=== PATIENT | male | born 1985 | race Caucasian/White ===

== ENCOUNTER 2023-03-20 18:46 | Emergency (ER) | payer BC ==
[2023-03-20] MEDS ORDERED: Aspirin 81 MG Tab.Chew PO ONE (19:07)
[2023-03-20] MEDS ORDERED: Sodium Chloride 0.9% 10 ML Syringe FLUSH PRN (19:07)
[2023-03-20 19:15] LABS: BASOPHILS ABSOLUTE AUTO 0.05 K/mm3 (0.01-0.08); BASOPHILS PERCENT AUTO 0.5 % (0.1-1.2); EOSINOPHILS PERCENT AUTO 3.2 (0.8-7.0); HEMATOCRIT 47.4 % (40.1-51.0); HEMOGLOBIN 16.2 gm/dl (13.7-17.5); IMMATURE GRAN ABSOLUTE AUTO 0.05 K/mm3 (0.00-0.10); IMMATURE GRAN PERCENT AUTO 0.5 % (<=1.0); LYMPHOCYTES ABSOLUTE AUTO 3.87 K/mm3 (1.32-3.57); LYMPHOCYTES PERCENT AUTO 41.6 % (21.8-53.1); MEAN CORPUSCULAR HGB CONC 34.2 g/dl (32.2-35.5); MEAN CORPUSCULAR VOLUME 90.8 fl (79.0-92.2); MEAN PLATELET VOLUME 9.5 fl (9.4-12.3); MONOCYTES ABSOLUTE AUTO 0.93 K/mm3 (0.30-0.82); NEUTROPHILS PERCENT AUTO 44.2 % (34.0-67.9); PLATELET COUNT,PLT 256 K/mm3 (163-337); RED BLOOD CELL COUNT 5.22 M/mm3 (4.63-6.08)
[2023-03-20 19:23] LABS: INR 0.93
[2023-03-20 19:28] LABS: A/G RATIO 1.2 (1-2); ALANINE AMINOTRANSFERASE,ALT 50 U/L (16-63); ALBUMIN 4.3 g/dl (3.4-5.0); ALKALINE PHOSPHATASE 126 U/L (46-116); ANION GAP 13.1 (5-15); ASPARTATE AMNIOTRANSFERASE,AST 25 U/L (15-37); BILIRUBIN TOTAL 0.2 mg/dL (0.2-1.0); BLOOD UREA NITROGEN,BUN 14 mg/dL (7-18); BUN/CREATININE RATIO 11.7 (14-18); CALCIUM 9.2 mg/dL (8.5-10.1); CARBON DIOXIDE,CO2 28 mEq/L (21-32); CHLORIDE,CL 103 mEq/L (98-107); CREATININE 1.2 mg/dL (0.7-1.3); ESTIMATED GFR 80 mL/min (>60); GLUCOSE RANDOM 97 mg/dL (70-99); MAGNESIUM 1.9 mg/dL (1.8-2.4); POTASSIUM,K 4.1 mEq/L (3.5-5.1); PROTEIN TOTAL,TP 7.8 g/dl (6.4-8.2); SODIUM,NA 140 mEq/L (136-145)
[2023-03-20 19:33] LABS: TROPONIN I HIGH SENSITIVITY < 4 pg/mL (<=76)
[2023-03-20 19:50] LABS: D-DIMER QUANTITATIVE < 0.19 mg/L (0.19-0.50)
== END 2023-03-20 21:13 | disposition home or self-care (01) ==
LOC: JD.ED 18:46
DX: R07.9 Chest pain, unspecified (principal)
CPT/HCPCS: 36415; 71045; 80053; 83735; 84484; 85025; 85379; 85610; 93005; 99285; A9270; 93010; 99284